=== PATIENT | female | born 1970 | race Caucasian/White ===

== ENCOUNTER 2025-08-05 04:27 | Emergency (ER) | payer OTHER, SELFPAY ==
[2025-08-05 04:28] VITALS: BP 154/105; PULSE 96; RESP 18; TEMP 36.6; O2SAT 98; BMI 24.7
--- NOTE | 2025-08-05 05:09 | PD.EDRME ---
Rapid Medical Screening Exam RME Arrival date/time: 08/05/25 04:27 This is a case of 54-year-old female who came into the emergency room due to headache and panic attacks with anxiety for 5 days persistence of the symptoms thus patient decided to start consult here in the emergency room Chief Complaint: Headache Time Seen by Provider: 08/05/25 05:08 Vital signs: Vital Signs Temperature 97.8 F 08/05/25 04:28 Pulse Rate 96 08/05/25 04:28 Respiratory Rate 18 08/05/25 04:28 Blood Pressure 154/105 H 08/05/25 04:28 Pulse Oximetry (%) 98 08/05/25 04:28 Oxygen Delivery Method Room Air 08/05/25 04:28
[2025-08-05 05:42] LABS: Basophils # (Auto) 0.0 Thou/mm3 (0.0-0.2); Basophils % (Auto) 1 % (0-2.5); Eosinophils # (Auto) 0.1 Thou/mm3 (0.0-0.5); Eosinophils % (Auto) 3 % (0-10); Hematocrit 35.8 % (36.0-46.0); Hemoglobin 11.9 g/dL (12.0-16.0); Immature Granulocytes Auto 0.01 Thou/mm3 (0.00-0.00); Lymphocytes # (Auto) 0.9 Thou/mm3 (1.0-4.8); Lymphocytes % (Auto) 23 % (10-50); Mean Corpuscular HGB Conc 33.2 g/dl (31.0-37.0); Mean Corpuscular Hemoglobin 29.7 pg (25.0-35.0); Mean Corpuscular Volume 89 fL (80-100); Monocytes # (Auto) 0.5 Thou/mm3 (0.0-0.8); Monocytes % (Auto) 11 % (0-12); Neutrophils # (Auto) 2.6 Thou/mm3 (1.8-7.7); Neutrophils % (Auto) 62 % (37-80); Nucleated Red Blood Cell # 0.00 Thou/mm3 (0.00-0.00); Nucleated Red Blood Cell % 0 /100 WBC (0); Platelet Count 207 Thou/mm3 (140-440); RDW Standard Deviation 52.8 fL (36.4-46.3); Red Blood Count 4.01 Miln/mm3 (4.00-5.20); White Blood Count 4.1 Thou/mm3 (3.6-11.0)
[2025-08-05 06:04] LABS: Alanine Aminotransferase 13 U/L (10-49); Albumin, Serum 4.7 gm/dL (3.5-5.0); Albumin/Globulin Ratio 1.6 (1.2-2.2); Alkaline Phosphatase 92 U/L (46-116); Anion Gap 10 (7-16); Aspartate Amino Transferase 34 U/L (0-34); BUN/Creatinine Ratio 12 Ratio (12-20); Bilirubin,Total 0.4 mg/dL (0.3-1.2); Blood Urea Nitrogen 17 mg/dL (9-23); Calcium 11.2 mg/dL (8.3-10.6); Calcium (Corrected) 11.2 mg/dL (8.5-10.1); Carbon Dioxide 28.5 mMol/L (20.0-31.0); Chloride 102 mMol/L (98-107); Creatinine (Component) 1.4 mg/dL (0.6-1.3); Estimated Creatinine Clearance 41.2 mL/min (>60); Globulin 2.9 gm/dL (2.3-3.5); Glucose 104 mg/dL (74-106); Osmolality,Calculated 280 (275-295); Potassium 4.0 mMol/L (3.4-5.1); Sodium 140 mMol/L (136-145); Total Protein 7.6 gm/dL (5.7-8.2); eGFR 45 See Note
--- NOTE | 2025-08-05 07:20 | PD.EDHA ---
ED Headache RME/HPI General Chief Complaint: Headache Stated Complaint: HEADACHE X 5DAYS Time Seen by Provider: 08/05/25 05:08 Source: patient Arrival date/time: 08/05/25 04:27 54-year-old female with a history of anxiety presents to the emergency room with a chief complaint of a headache x 5 days Mode of arrival: ambulatory Limitations: no limitations RME / HPI RME / HPI Narrative: 08/05/25 04:27 This is a case of 54-year-old female who came into the emergency room due to headache and panic attacks with anxiety for 5 days persistence of the symptoms thus patient decided to start consult here in the emergency room Related Data Home Medications ?Medication ?Instructions ?Recorded ?Confirmed Multivit with Calcium,Iron,Min 1 ea PO QDAY #0 tabs 11/09/17 02/14/23 (Multiple Vitamins For Women) gabapentin 100 mg capsule 100 mg PO TID #0 caps 11/09/17 02/14/23 hydroxychloroquine 200 mg tablet 200 mg PO DAILY #0 tabs 11/09/17 02/14/23 (Plaquenil) diclofenac sodium 75 mg 75 mg PO BID 10/21/21 02/14/23 tablet,delayed release losartan 100 12.5 tab PO DAILY 10/21/21 02/14/23 mg-hydrochlorothiazide 12.5 mg tablet Previous Rx's ?Medication ?Instructions ?Recorded acetaminophen 500 mg tablet 500 mg PO Q6H PRN pain #60 tabs 03/15/19 (Tylenol Extra Strength) acetaminophen-caffeine 500 mg-65 1 tab PO Q8H PRN pain #30 tabs 08/05/25 mg tablet (Excedrin Tension Headache) Allergies Allergy/AdvReac Type Severity Reaction Status Date / Time No Known Allergies Allergy Unverified 10/27/21 09:03 Review of Systems Review of Systems Systems Reviewed: All systems reviewed, normal except as documented Constitutional Constitutional: Reports system reviewed and no additional complaints, except as documented, Denies fatigue, Denies fever(s), Reports headache(s) and Reports weakness Eyes Eyes: Reports system reviewed and no additional complaints, except as documented, Denies blurry vision and Denies change in vision ENT Ears, Nose, Mouth, and Throat: Reports system reviewed and no additional complaints, except as documented, Denies otalgia, Reports headache(s), Denies nasal congestion, Denies throat swelling and Denies vertigo Cardiovascular Cardiovascular: Reports system reviewed and no additional complaints, except as documented, Denies chest pain, Denies dyspnea and Denies dyspnea on exertion Respiratory Respiratory: Reports system reviewed and no additional complaints, except as documented, Denies chest congestion, Denies cough, Denies dyspnea, Denies dyspnea on exertion and Denies wheezing Gastrointestinal Gastrointestinal: Reports system reviewed and no additional complaints, except as documented, Denies abdominal pain, Denies cramping, Denies nausea and Denies vomiting Genitourinary Genitourinary: Reports system reviewed and no additional complaints, except as documented Musculoskeletal Musculoskeletal: Reports system reviewed and no additional complaints, except as documented and Denies back pain Integumentary/Breasts Skin/Breast: Reports system reviewed and no additional complaints, except as documented and Denies wounds Neurologic Neurologic: Reports system reviewed and no additional complaints, except as documented, Denies confusion, Reports headache(s), Denies lack of coordination, Denies vertigo and Reports weakness Psychiatric Psychiatric: Reports system reviewed and no additional complaints, except as documented, Denies anxiety, Denies confusion, Denies depression, Denies paranoia, Denies suicidal ideation and Denies tactile hallucinations Endocrine Endocrine: Reports system reviewed and no additional complaints, except as documented and Denies fatigue Hematologic/Lymphatic Hematologic/Lymphatic: Reports system reviewed and no additional complaints, except as documented and Denies lymphadenopathy Allergic/Immunologic Allergic/Immunologic: Reports system reviewed and no additional complaints, except as documented, Denies throat swelling, Denies urticaria and Denies wheezing Past Medical History Past Medical History NEUROLOGIC: Positive Peripheral Neuropathy (feet and hands); Negative Transient Ischemic Attacks (TIA) or Seizures CARDIAC: Positive Hypertension; Negative Congestive Heart Failure RESPIRATORY: Negative Chronic Obstructive Pulmonary Disease (COPD) or Sleep Apnea GENITOURINARY: Negative Renal Disease MUSCULOSKELETAL: Positive Musculoskeletal Disorders (MIXED CONNECTIVE TISSUE DISEASE) ENDOCRINE: Negative Diabetes Mellitus Type 1 or Diabetes Mellitus Type 2 PSYCHO/SOCIAL: Positive Anxiety OTHER HISTORY: Positive Falls, Chicken Pox, Mumps and Cancer; Negative Autoimmune Disease, Down Syndrome, Developmental Delay, Blood Transfusions, Blood Transfusion Reaction, Anesthesia Reactions, Organ Transplant, Chemotherapy, Radiation Therapy or Measles Family History FAMILY HISTORY: Positive Family Cancer (father bladder ca) Surgical History SURGICAL: Positive Hysterectomy (partial 2018) and Tubal Ligation (2007); Negative Organ Transplant Social History SMOKING STATUS: Never smoker ED Exam General Limitations: Present no limitations General appearance: Present alert and in no apparent distress Head Head exam: Present atraumatic, normocephalic and normal inspection Eye Eye exam: Present normal appearance, PERRL and EOMI ENT ENT exam: Present normal exam, normal oropharynx and mucous membranes moist Neck Neck exam: Present normal inspection, full ROM and trachea midline Chest Chest inspection: Present normal inspection and symmetric chest wall rise Respiratory Respiratory exam: Present normal lung sounds bilaterally Cardiovascular Cardiovascular exam: Present regular rate, normal rhythm and normal heart sounds Abdominal Exam Abdominal exam: Present soft and normal bowel sounds; Absent distention, tenderness, guarding, rebound or rigidity Extremities Exam Extremities exam: Present normal inspection and full ROM Back Exam Back exam: Present normal inspection and full ROM Neurological Exam Neurological exam: Present alert, oriented X3, CN II-XII intact, normal gait and reflexes normal Expanded Neurological Exam Patient oriented to: Present person, place and time Speech: Present fluid speech Cranial nerves: Normal: EOM function (II, III, IV, ) Cerebellar function: Present normal gait Motor strength - LUE: 5/5 Motor strength - RUE: 5/5 Motor strength - LLE: 5/5 Motor strength - RLE: 5/5 Coma scale eye opening: spontaneous Coma scale motor response: obeys commands Coma scale verbal response: oriented Coma scale total: 15 Psychiatric Psychiatric exam: Present normal affect and normal mood Skin Skin exam: Present warm, dry, intact and normal color Course Quality Measures none Orders Category Date Time Status CBC Stat Lab 08/05/25 05:34 Completed CMP [Comprehensive Metabolic Panel] Stat Lab 08/05/25 05:34 Completed ALPRazoLAM [Xanax] Med 08/05/25 06:34 Discontinued 0.5 mg PO X1 ONE Vital Signs Vital signs: Vital Signs Temperature 97.8 F 08/05/25 04:28 Pulse Rate 96 08/05/25 04:28 Respiratory Rate 18 08/05/25 04:28 Blood Pressure 154/105 H 08/05/25 04:28 Pulse Oximetry (%) 98 08/05/25 04:28 Oxygen Delivery Method Room Air 08/05/25 04:28 Headache MDM Narrative MDM Narrative:: 54-year-old female with a history of anxiety presents to the emergency room with a chief complaint of a headache x 5 days Patient is hemodynamically stable and in no apparent distress. During my reevaluation patient stated that she refused the CT scan as her symptoms were getting better and she believes this is all anxiety related My physical examination showed a normal neurological exam. Pupils are PERRLA EOMs are intact the patient has a normal steady gait. Patient is a GCS of 15 alert and oriented x 3. Patient states that after her medication her symptoms have significantly improved. Patient was discharged and educated to follow-up with primary care provider in the next 24 to 48 hours and return to the emergency room for any evidence of worsening signs or symptoms Patient data [facility] records [facility] records Clinical information provided by:: patient Social determinants that could affect healthcare access:: none Patient has the following chronic illnesses:: No chronic illness How is presenting disease/condition affected by chronic disease/condition?: no chronic disease Evaluation data The following diagnostics were reviewed and interpreted by me:: lab results and radiology exam(s) Lab and/or radiology exams considered but not ordered:: Labs and radiology exams considered and ordered Interpretation Summary: CT was ordered by previous provider but patient refused Medications / Prescriptions Medications or Prescriptions considered but not ordered:: Medication given Medication administrations:: Medication Administration History Discontinued Medications Alprazolam (Alprazolam 0.25 Mg Tablet) 0.5 mg PO X1 ONE Stop: 08/05/25 06:35 Last Admin: 08/05/25 06:43 Dose: 0.5 mg Documented By: CB Medication given Consultations Consultation(s) initiated? (list below): No Diagnosis Differential diagnosis headache: migraine, tension headache, subarachnoid hemorrhage, headache and sinusitis Most likely diagnosis given after review of the tests above:: Headache Admission Indicated Admission indicated?: not indicated Admission Request Was there a request for admission?: No Disposition Plan Disposition Plan: Discharge Discharge Attestation Discharge Attestation: The patient and all family members were given an opportunity to ask questions and understood the discharge instructions. Discharge instructions specifically effects, indications for sooner follow up or return to the emergency department, and the expected course of current diagnosis. Patient condition: Stable Discharge Plan Plan Patient Disposition: HOME (Self Care) Discharge Disposition comment: Stable Prescriptions/Referrals Prescriptions/Med Rec: New Excedrin Tension Headache 500-65 mg tablet 1 tab PO Q8H PRN (Reason: pain) Qty: 30 0RF No Action gabapentin 100 MG capsule 100 mg PO TID Qty: 0 hydroxychloroquine [Plaquenil] 200 MG tablet 200 mg PO DAILY Qty: 0 Multivit with Calcium,Iron,Min (Multiple Vitamins For Women) 1 EACH tablet 1 ea PO QDAY Qty: 0 acetaminophen [Tylenol Extra Strength] 500 mg tablet 500 mg PO Q6H PRN (Reason: pain) Qty: 60 0RF diclofenac sodium 75 mg tablet,delayed release (DR/EC) 75 mg PO BID losartan-hydrochlorothiazide 100-12.5 mg tablet 12.5 tab PO DAILY Referrals: Stevie Roberts MD [Primary Care Provider, Nephrology] - In 1 week Problem List Clinical Impression: Headache Patient/Caregiver Discharge Instructions Education Materials: Self-Care for Headaches Additional Instructions: Please follow-up with your primary care provider in the next 24 to 48 hours For any evidence of worsening signs or symptoms return to emergency room immediately Print Language: Niuean Stand Alone Forms: Abbie Award Info., Patient Portal Info Letter PA/[facility] ADMINISTRATOR Supervising Physician PA/[facility] ADMINISTRATOR Supervising Physician: Dr. Goode
[2025-08-05 07:37] VITALS: BP 140/108; PULSE 92; RESP 17; TEMP 36.6; O2SAT 95
== END 2025-08-05 07:37 | disposition home or self-care (01) ==
PROVIDERS: Nurse Practitioner Family; Emergency Provider Emergency Medicine; PCP Internal Medicine
DX: R51.9 Headache, unspecified (principal)
CPT/HCPCS: 36415; 80053; 85025; 99283; A9270